=== PATIENT | female | born 1995 | race Caucasian/White ===

== ENCOUNTER 2022-12-08 08:29 | Day surgery (SDC) | payer BC ==
[2022-12-08] MEDS ORDERED: Naloxone 0.4 MG/ML SDV IVPUSH PRN (08:34)
[2022-12-08] MEDS ORDERED: fentaNYL 50 MCG/ML SDV IVPUSH PRN (08:34)
[2022-12-08] MEDS ORDERED: Albuterol 0.083% 2.5 MG/3 ML Neb Soln NEB PRN (08:34)
[2022-12-08] MEDS ORDERED: Metoclopramide 10 MG/2 ML SDV IVPUSH PRN (08:34)
[2022-12-08] MEDS ORDERED: HYDROmorphone 1 MG/ML Syringe IVPUSH PRN (08:34)
[2022-12-08] MEDS ORDERED: Morphine 2 MG/ML SYRINGE IVPUSH PRN (08:34)
[2022-12-08] MEDS ORDERED: Ondansetron 4 MG/2 ML SDV IVPUSH PRN (08:34)
[2022-12-08] MEDS ORDERED: Lactated Ringers 1,000 ML IV SCH (09:00)
[2022-12-08] MEDS ORDERED: Ondansetron 4 MG/2 ML SDV ONE (09:48)
[2022-12-08] MEDS ORDERED: Dexamethasone 4 MG/ML 5 ML MDV ONE (09:48)
[2022-12-08] MEDS ORDERED: Lidocaine 2% 5 ML SDV ONE (09:48)
[2022-12-08] MEDS ORDERED: fentaNYL 100 MCG/2 ML SDV ONE (09:49)
[2022-12-08] MEDS ORDERED: Propofol 200 MG/20 ML SDV ONE (09:49)
[2022-12-08] MEDS ORDERED: Ketorolac 30 MG/ML SDV ONE (10:18)
[2022-12-08] MEDS ORDERED: ePHEDrine 50 MG/ML SDV ONE (10:31)
== END 2022-12-08 11:30 | disposition home or self-care (01) ==
LOC: MW.SDS 08:29
PROVIDERS: ATTEND Obstetrics & Gynecology
DX: N84.0 Polyp of corpus uteri (principal); E04.2 Nontoxic multinodular goiter; Z79.899 Other long term (current) drug therapy; Z98.890 Other specified postprocedural states
CPT/HCPCS: 58558; J1100; J1885; J2405; J2704; J3010; J7120; J3490

== ENCOUNTER 2023-06-04 11:37 | Emergency (ER) | payer BC ==
[2023-06-04 12:26] LABS: APPEARANCE,URINE SLT CLOUDY; BILIRUBIN,URINE NEGATIVE (NEGATIVE); COLOR,URINE YELLOW; GLUCOSE,URINE NEGATIVE (NEGATIVE); KETONES,URINE NEGATIVE (NEGATIVE); LEUKOCYTE ESTERASE,URINE NEGATIVE (NEGATIVE); NITRITE,URINE NEGATIVE (NEGATIVE); OCCULT BLOOD,URINE SMALL (NEGATIVE); PH,URINE 6.5 (5.0-8.0); PROTEIN,URINE TRACE mg/dL (NEGATIVE)
[2023-06-04 12:38] LABS: SQUAMOUS EPITHELIAL CELLS,UR MODERATE; YEAST,URINE FEW
[2023-06-04 12:39] LABS: BACTERIA,URINE FEW (NEGATIVE); MUCUS,URINE HEAVY (NONE-MOD)
== END 2023-06-04 13:08 | disposition home or self-care (01) ==
LOC: MW.ED 11:37
DX: O99.891 Other specified diseases and conditions complicating pregnancy (principal); M54.50 Low back pain, unspecified
CPT/HCPCS: 81001; 99282; 99283

== ENCOUNTER 2023-09-21 06:38 | Emergency (ER) | payer BC ==
[2023-09-21] MEDS ORDERED: Sodium Chloride 0.9% 1,000 ML IV ONE (06:39)
[2023-09-21] MEDS ORDERED: Ondansetron 4 MG/2 ML SDV IVPUSH ONE (06:44)
[2023-09-21 07:07] LABS: BASOPHILS ABSOLUTE AUTO 0.06 K/uL (0.00-0.20); BASOPHILS PERCENT AUTO 0.4 % (0.0-1.0); EOSINOPHILS ABSOLUTE AUTO 0.13 K/uL (0.00-0.45); EOSINOPHILS PERCENT AUTO 0.8 % (0.0-6.0); HEMOGLOBIN 12.2 g/dL (12.0-16.0); IMMATURE GRAN ABSOLUTE AUTO 0.24 K/uL (0.00-0.05); IMMATURE GRAN PERCENT AUTO 1.5 % (0.0-0.4); LYMPHOCYTES ABSOLUTE AUTO 4.03 K/uL (1.00-4.80); LYMPHOCYTES PERCENT AUTO 25.3 % (24.0-44.0); MEAN CORPUSCULAR HEMOGLOBIN 30.3 pg (28.0-32.0); MEAN CORPUSCULAR HGB CONC 33.9 g/dL (32.0-36.0); MEAN CORPUSCULAR VOLUME 89.3 fL (83.0-99.0); MEAN PLATELET VOLUME 9.8 fL (9.4-12.3); MONOCYTES ABSOLUTE AUTO 0.91 K/uL (0.00-0.80); MONOCYTES PERCENT AUTO 5.7 % (0.0-8.0); NEUTROPHILS ABSOLUTE AUTO 10.58 K/uL (1.80-7.70); NEUTROPHILS PERCENT AUTO 66.3 % (41.0-71.0); PLATELET COUNT,PLT 255 K/uL (150-400); RED BLOOD CELL COUNT 4.03 M/uL (4.10-5.30); WHITE BLOOD CELL COUNT,WBC 15.95 K/uL (3.9-11.3)
[2023-09-21 07:35] LABS: A/G RATIO 0.7 (0.9-1.6); ALBUMIN 2.8 g/dL (3.4-5.0); BILIRUBIN TOTAL 0.4 mg/dL (0.2-1.0); CALCIUM 8.5 mg/dL (8.5-10.1); CARBON DIOXIDE,CO2 24.8 mmol/L (21.0-32.0); CREATININE 0.6 mg/dL (0.6-1.0); EST CRCL DRUG DOSING (CG) 112.9 mL/min; MAGNESIUM 1.7 mg/dL (1.8-2.4); POTASSIUM,K 3.4 mmol/L (3.5-5.1); PROTEIN TOTAL,TP 6.6 g/dL (6.4-8.2)
[2023-09-21 07:47] LABS: CORONAVIRUS COVID-19 NAA NEGATIVE (NEGATIVE); INFLUENZA A NAA NEGATIVE (NEGATIVE); INFLUENZA B NAA NEGATIVE (NEGATIVE)
[2023-09-21] MEDS ORDERED: Meclizine 25 MG Tab PO ONE (08:16)
[2023-09-21 08:23] LABS: APPEARANCE,URINE CLEAR; BILIRUBIN,URINE NEGATIVE (NEGATIVE); COLOR,URINE YELLOW; GLUCOSE,URINE NEGATIVE (NEGATIVE); KETONES,URINE NEGATIVE (NEGATIVE); LEUKOCYTE ESTERASE,URINE NEGATIVE (NEGATIVE); NITRITE,URINE NEGATIVE (NEGATIVE); OCCULT BLOOD,URINE NEGATIVE (NEGATIVE); PH,URINE 6.5 (5.0-8.0); PROTEIN,URINE NEGATIVE (NEGATIVE); UROBILINOGEN,URINE 0.2 EU/dL (<2.0)
[2023-09-21] MEDS ORDERED: Morphine 4 MG/ML Syringe IVPUSH ONE (08:25)
[2023-09-21] MEDS ORDERED: Sodium Chloride 0.9% 500 ML IV SCH (11:30)
== END 2023-09-21 12:00 | disposition home or self-care (01) ==
LOC: MW.ED 06:38
DX: R42 Dizziness and giddiness (principal)
CPT/HCPCS: 0240U; 36415; 70470; 70551; 80053; 81003; 83690; 83735; 85025; 93005; 96361; 96374; 99284; A9270; J2405; J7030; J7040; 93010

== ENCOUNTER 2023-12-22 05:22 | Inpatient (IN) | payer BC ==
[2023-12-22] MEDS ORDERED: Sodium Chloride 0.9% 10 ML Syringe FLUSH PRN (05:24)
[2023-12-22] MEDS ORDERED: ceFAZolin 1 GM in Sodium Chloride 0.9% 50 ML IV ONE (05:24)
[2023-12-22] MEDS ORDERED: Sodium Chloride 0.9% 20 ML SDV IV PRN (05:24)
[2023-12-22] MEDS ORDERED: Citric Acid/Sodium Citrate Solution 30 ML Cup PO ONE (05:24)
[2023-12-22] MEDS ORDERED: Sodium Chloride 0.9% 2.5 ML Syringe FLUSH PRN (05:24)
[2023-12-22] MEDS ORDERED: Oxytocin/0.9 % Sodium Chloride 30 UNIT/500 ML BAG IV SCH ×2 (05:30→08:45)
[2023-12-22] MEDS: Lactated Ringers 1,000 ML IV SCH ×2 (05:45→12:29)
[2023-12-22 06:08] LABS: HEMATOCRIT 36.3 % (37.0-47.0); HEMOGLOBIN 12.6 g/dL (12.0-16.0); MEAN CORPUSCULAR HEMOGLOBIN 29.6 pg (28.0-32.0); MEAN CORPUSCULAR HGB CONC 34.7 g/dL (32.0-36.0); MEAN CORPUSCULAR VOLUME 85.4 fL (83.0-99.0); PLATELET COUNT,PLT 200 K/uL (150-400); RED BLOOD CELL COUNT 4.25 M/uL (4.10-5.30); WHITE BLOOD CELL COUNT,WBC 13.81 K/uL (3.9-11.3)
[2023-12-22] MEDS ORDERED: Ropivacaine 0.5% 5 MG/ML 30 ML SDV ONE (07:04)
[2023-12-22] MEDS ORDERED: ceFAZolin 1 GM Vial ONE (07:04)
[2023-12-22] MEDS ORDERED: Phenylephrine 1% 10 MG/ML SDV ONE (07:04)
[2023-12-22] MEDS ORDERED: Oxytocin 10 Units/1 ML SDV ONE (07:04)
[2023-12-22] MEDS ORDERED: ePHEDrine 50 MG/ML SDV ONE (07:04)
[2023-12-22] MEDS ORDERED: Ketorolac 30 MG/ML SDV ONE (07:04)
[2023-12-22] MEDS ORDERED: Ondansetron 4 MG/2 ML SDV ONE (07:04)
[2023-12-22] MEDS ORDERED: Dexamethasone 4 MG/ML 5 ML MDV ONE (07:04)
[2023-12-22] MEDS ORDERED: fentaNYL 100 MCG/2 ML SDV ONE (07:04)
[2023-12-22] MEDS ORDERED: dexmedeTOMIDine HCl 200 MCG/2 ML SDV ONE (07:04)
[2023-12-22] MEDS ORDERED: Morphine PF 10 MG/10 ML SDV ONE (07:05)
[2023-12-22] MEDS ORDERED: ePHEDrine 50 MG/ML SDV IVPUSH PRN (07:31)
[2023-12-22] MEDS ORDERED: fentaNYL 50 MCG/ML SDV IVPUSH PRN (07:31)
[2023-12-22] MEDS ORDERED: Naloxone 0.4 MG/ML SDV IVPUSH PRN (07:31)
[2023-12-22] MEDS ORDERED: Morphine 2 MG/ML SYRINGE IVPUSH PRN (07:31)
[2023-12-22] MEDS ORDERED: Metoclopramide 10 MG/2 ML SDV IVPUSH PRN (07:31)
[2023-12-22] MEDS ORDERED: Albuterol 0.083% 2.5 MG/3 ML Neb Soln NEB PRN (07:31)
[2023-12-22] MEDS ORDERED: HYDROmorphone 1 MG/ML Syringe IVPUSH PRN (07:31)
[2023-12-22] MEDS ORDERED: droPERidol 5 MG/2 ML SDV IVPUSH PRN (07:31)
[2023-12-22] MEDS ORDERED: diphenhydrAMINE 50 MG/ML SDV IVPUSH PRN ×2 (07:31→08:35)
[2023-12-22] MEDS ORDERED: Ondansetron 4 MG/2 ML SDV IVPUSH PRN ×3 (07:31→08:35)
[2023-12-22] MEDS ORDERED: Acetaminophen/oxyCODONE 325-5 MG Tab PO PRN ×2 (07:31→08:35)
[2023-12-22] MEDS ORDERED: fentaNYL 100 MCG/2 ML SDV IVPUSH PRN (07:31)
[2023-12-22] MEDS ORDERED: Glycopyrrolate 0.2 MG/ML SDV ONE (07:43)
[2023-12-22] MEDS ORDERED: Midazolam 1 MG/ML 2 ML SDV ONE (08:03)
[2023-12-22] MEDS ORDERED: Lanolin 100% Cream 7 GM Tube TOP PRN (08:35)
[2023-12-22] MEDS ORDERED: Bisacodyl 10 MG Supp RECTAL PRN (08:35)
[2023-12-22] MEDS ORDERED: Methylergonovine 0.2 MG/1 ML Amp IM PRN (08:35)
[2023-12-22] MEDS ORDERED: Misoprostol 200 MCG Tab RECTAL PRN (08:35)
[2023-12-22] MEDS ORDERED: Oxytocin 10 Units/1 ML SDV IM PRN (08:35)
[2023-12-22 09:00] LABS: PH,UMBILICAL VENOUS 7.351 (7.25-7.45)
[2023-12-22 09:01] LABS: PH,UMBILICAL ARTERIAL 7.292 (7.18-7.38)
[2023-12-22] MEDS: Acetaminophen 1,000 MG in Premix Bag 1 BAG IV SCH (10:43)
[2023-12-22] MEDS: Ketorolac 30 MG/ML SDV IVPUSH SCH (13:57)
[2023-12-22] MEDS: Docusate Sodium 100 MG Cap PO SCH (20:30)
[2023-12-23 05:50] LABS: HEMATOCRIT 27.4 % (37.0-47.0); HEMOGLOBIN 9.2 g/dL (12.0-16.0)
[2023-12-23] MEDS: Simethicone 80 MG Tab.Chew PO ONE (08:25)
[2023-12-23] MEDS: Acetaminophen/oxyCODONE 325-5 MG Tab PO PRN (16:05)
[2023-12-23] MEDS: Ibuprofen 800 MG Tab PO PRN (16:05)
[2023-12-23] MEDS: Simethicone 80 MG Tab.Chew PO SCH (20:21)
[2023-12-25] MEDS ORDERED: Ferrous Sulfate 325 MG Tab PO SCH (08:00)
== END 2023-12-24 10:45 | disposition home or self-care (01) | DRG 540 ==
LOC: MW.OB 05:22
PROVIDERS: ADMIT Obstetrics & Gynecology; ATTEND Obstetrics & Gynecology
PROC: 10D00Z1 Extraction of Products of Conception, Low, Open Approach (ICD-10-PCS; principal; 2023-12-22 08:00)
DX: O34.211 Maternal care for low transverse scar from previous cesarean delivery (principal); Z3A.38 38 weeks gestation of pregnancy; Z37.0 Single live birth; Z98.890 Other specified postprocedural states; O99.344 Other mental disorders complicating childbirth; F41.9 Anxiety disorder, unspecified; O99.03 Anemia complicating the puerperium; D62 Acute posthemorrhagic anemia
CPT/HCPCS: 01961; 36415; 59025; 64488; 82803; 85014; 85018; 85027; 86850; 86900; 86901; A9270-GY; J0131; J0690; J1100; J1885; J2250; J2274; J2371; J2405; J2590; J2795; J3010; J3490; J7120